=== PATIENT | male | born 1975 | race Native Hawaiian/Other Pacific Islander ===

== ENCOUNTER 2019-04-11 02:00 | Emergency (ER) | payer OTHER ==
[~2019-04-11] VITALS: Ht 175.3 cm; Wt 102.1 kg
[2019-04-11 02:10] VITALS: BP 167/100; TEMP 98.4
== END 2019-04-11 04:05 | disposition home or self-care (01) ==
LOC: ED 02:00
DX: S82.002G Unspecified fracture of left patella, subsequent encounter for closed fracture with delayed healing (principal); I10 Essential (primary) hypertension
CPT/HCPCS: 96372; 99282; 99283; J1885